=== PATIENT | male | born 2000 | race Caucasian/White ===

== ENCOUNTER 2022-03-12 07:09 | Outpatient (CLI) | payer OTHER | END 2022-03-12 07:10 | disposition home or self-care (01) | LOC: BICULT 07:09 | PROVIDERS: ATTEND Internal Medicine Gastroenterology | DX: R10.9 Unspecified abdominal pain (principal); R63.4 Abnormal weight loss; R93.2 Abnormal findings on diagnostic imaging of liver and biliary tract | CPT/HCPCS: 76700 ==

== ENCOUNTER 2022-05-06 07:59 | Outpatient (CLI) | payer OTHER | END 2022-05-06 08:00 | disposition home or self-care (01) | LOC: NM 07:59 | PROVIDERS: ATTEND Surgery | DX: K81.9 Cholecystitis, unspecified (principal) | CPT/HCPCS: 78227; A9537 ==